=== PATIENT | female | born 1985 | race Caucasian/White ===

== ENCOUNTER → 2019-07-15 10:10 | Outpatient (CLI) | payer SELFPAY ==
--- NOTE | 2019-07-15 10:18 | CT_ITS ---
STUDY: CT ABDOMEN AND PELVIS WITHOUT CONTRAST REASON FOR EXAM: Female, 34 years old. Left flank pain. RADIATION DOSAGE (If Supplied By Facility): CTDIvol = ( 7.11 ) mGy, DLP = ( 355.17 ) mGycm TECHNIQUE: Transaxial images were obtained from the dome of the diaphragm to the symphysis pubis without oral contrast, and without intravenous contrast. Sagittal and coronal images were reconstructed. Individualized dose optimization techniques were used for this CT. COMPARISON: None. FINDINGS: The visualized lung bases are unremarkable. The visualized portions of the heart are within normal limits. Normal liver. Normal gallbladder and extrahepatic biliary system. Normal spleen. Normal pancreas. Normal bilateral adrenal glands. Normal right kidney. Normal left kidney. Normal visualized stomach. Normal small intestine. Normal colon. The appendix is visualized and appears normal. Normal abdominal aorta. Normal inferior vena cava. Normal retroperitoneum. Normal urinary bladder. Normal abdominal wall. Normal osseous structures. CT/Abdomen/Pelvis without Cont IMPRESSION: Normal unenhanced CT of the abdomen and pelvis. Electronically Signed: Mateo Collins, at 11:18 EDT , Service support ,
== END ==
PROVIDERS: Referring Provider Nurse Practitioner Adult Health; Visit Provider Nurse Practitioner Adult Health
DX: R10.9 Unspecified abdominal pain (principal)
CPT/HCPCS: 74176

== ENCOUNTER → 2024-05-20 | Outpatient (CLI) | payer SELFPAY, OTHER ==
--- NOTE | 2024-05-20 07:17 | US_ITS ---
STUDY: ULTRASOUND TRANSVAGINAL CLINICAL: Female, 39 years old. Pelvic pain, fatigue TECHNIQUE: Transvaginal COMPARISON: None. FINDINGS: Normal uterine size measuring 7.5 cm in maximal craniocaudal dimension. There are no myometrial masses. Normal endometrial thickness measuring 5 mm. There are no endometrial masses, and there is no fluid in the endometrial cavity. Normal uterine cervix. Normal right ovary, measuring 3.2 x 3.3 x 2.0 cm. There are multiple follicles without a dominant cyst. Normal left ovary, measuring 3.2 x 3.4 x 1.7 cm. There are multiple follicles without a dominant cyst. Normal arterial and venous flow noted to both ovaries with color Doppler There is no free fluid in the pelvis. US/Transvaginal Non- IMPRESSION: Sonographically normal pelvis Electronically Signed: Tony Encarnacion MD at 8:28 EDT ,
== END | disposition home or self-care (01) ==
LOC: US 07:14
PROVIDERS: PCP Family Medicine
DX: R10.2 Pelvic and perineal pain (principal); R53.83 Other fatigue
CPT/HCPCS: 76830